=== PATIENT | male | born 1970 | race African-American/Black ===

== ENCOUNTER → 2017-12-04 | Outpatient (CLI) | payer OTHER ==
--- NOTE | 2017-12-04 17:17 | RAD ---
Exam: Lumbar spine AP lateral and oblique views History: 47-year-old male with pain Comparison: None Findings: 5 [id number] lumbar type vertebral bodies are seen. Vertebral body alignment is anatom ic. Lumbar disc spaces are maintained. No acute bony abnormality or significant degenerative change i s seen. Incidental note is made of very vena caval filter, apex of which extends up to the T12-L1 level. Bila teral hip prostheses are noted as well IMPRESSION: Negative views of the lumbar spine with no acute bony abnormality or significant degenera tive change seen. Reported By:
[2017-12-04 17:35] LABS: T4 (THYROXINE) 7.6 ug/dL (4.7-13.3); TSH (3RD GENERATION) 0.592 uIU/mL (0.358-3.74)
[2017-12-04 17:47] LABS: TOTAL PSA 1.74 ng/mL (0.13-4.0)
== END ==
LOC: LAB 16:43
PROVIDERS: ATTEND Psychiatry & Neurology Neurology
DX: M54.5 Low back pain (principal); R53.83 Other fatigue
CPT/HCPCS: 36415; 72110; 84153; 84436; 84443

== ENCOUNTER → 2017-12-29 | Outpatient (CLI) | payer OTHER ==
[2017-12-29 08:29] LABS: BASOPHILS # (AUTO) 0.1 X10^3/uL (0.0-0.1); BASOPHILS % (AUTO) 0.8 % (0.2-1.0); EOSINOPHILS # (AUTO) 0.1 x10^3/uL (0.0-0.2); EOSINOPHILS % (AUTO) 1.2 % (0.9-2.9); HEMATOCRIT 39.2 % (42.0-54.0); HEMOGLOBIN 12.5 g/dL (13.5-18.0); LYMPHOCYTES # (AUTO) 2.2 X10^3/uL (1.3-2.9); LYMPHOCYTES % (AUTO) 27.9 % (21.0-51.0); MEAN CORPUSCULAR HEMOGLOBIN 25.2 pg (27.0-34.0); MEAN PLATELET VOLUME 11.3 fL (7.4-11.0); MONOCYTES # (AUTO) 0.7 x10^3/uL (0.3-0.8); MONOCYTES % (AUTO) 8.7 % (0.0-13.0); NEUTROPHILS # (AUTO) 4.9 x10^3/uL (2.2-4.8); NEUTROPHILS % (AUTO) 61.4 % (42.0-75.0); PLATELET COUNT 161 X10^3/uL (150.0-450.0); RED BLOOD COUNT 4.97 X10^6/uL (4.7-6.0); RED CELL DISTRIBUTION WIDTH 14.8 % (11.6-16.5)
[2017-12-29 08:39] LABS: ALBUMIN 3.7 g/dL (3.4-5.0); BLOOD UREA NITROGEN 14 mg/dL (7-18); CALCIUM 8.7 mg/dL (8.5-10.1); CARBON DIOXIDE 26.8 mmol/L (21-32); CHLORIDE 110 mmol/L (98-107); CHOL/HDL RATIO 3.1 (0.0-5.0); CHOLESTEROL 156 mg/dL (0-200); CREATININE 1.61 mg/dL (0.70-1.30); HDL CHOLESTEROL 51 mg/dL (40-60); PHOSPHORUS 3.1 mg/dL (2.6-4.7); SODIUM 147 mmol/L (136-145); TRIGLYCERIDES 109 mg/dL (0-150); URIC ACID 5.4 mg/dL (3.5-7.2); eGFR BLACK RACES 59 (>60); eGFR NON BLACK RACES 49 (>60)
[2017-12-29 08:45] LABS: PLATELET MORPHOLOGY COMMENT NORMAL (NORMAL)
== END | disposition home or self-care (01) ==
LOC: LAB 08:05
PROVIDERS: ATTEND Internal Medicine
DX: N18.3 Chronic kidney disease, stage 3 (moderate) (principal); Z94.0 Kidney transplant status
CPT/HCPCS: 36415; 80061; 80069; 80197; 84550; 85025

== ENCOUNTER → 2018-02-03 | Outpatient (CLI) | payer OTHER, MEDICAID ==
[2018-02-03 10:14] LABS: ALANINE AMINOTRANSFERASE 19 Units/L (12-78); ALBUMIN 3.5 g/dL (3.4-5.0); ALKALINE PHOSPHATASE 68 Units/L (46-116); ASPARTATE AMINO TRANSFERASE 10 Units/L (15-37); BILIRUBIN,DIRECT 0.12 mg/dL (0-0.2); BLOOD UREA NITROGEN 21 mg/dL (7-18); CALCIUM 8.2 mg/dL (8.5-10.1); CARBON DIOXIDE 26.6 mmol/L (21-32); CHLORIDE 110 mmol/L (98-107); CHOLESTEROL 164 mg/dL (0-200); COR NA(FOR HYPERGLY) 146 mmol/L (136-145); CREATININE 1.62 mg/dL (0.70-1.30); FREE T4 (FREE THYROXINE) 0.81 ng/dL (0.76-1.46); HDL CHOLESTEROL 54 mg/dL (40-60); PHOSPHORUS 3.3 mg/dL (2.6-4.7); SODIUM 146 mmol/L (136-145); TOTAL PROTEIN 6.8 g/dL (6.4-8.2); TRIGLYCERIDES 84 mg/dL (0-150); TSH (3RD GENERATION) 1.518 uIU/mL (0.358-3.74); URIC ACID 6.9 mg/dL (3.5-7.2); eGFR BLACK RACES 59 (>60); eGFR NON BLACK RACES 49 (>60)
[2018-02-03 10:32] LABS: PLATELET MORPHOLOGY COMMENT NORMAL (NORMAL)
[2018-02-03 10:33] LABS: HYPOCHROMASIA SLIGHT
[2018-02-03 10:44] LABS: IRON 73 ug/dL (50-175); TOTAL IRON BINDING CAPACITY 278 ug/dL (250-450); TRANSFERRIN 213 mg/dL (202-364)
[2018-02-03 10:50] LABS: BASOPHILS % (AUTO) 0.5 % (0.2-1.0); EOSINOPHILS # (AUTO) 0.1 x10^3/uL (0.0-0.2); EOSINOPHILS % (AUTO) 1.4 % (0.9-2.9); HEMATOCRIT 36.5 % (42.0-54.0); HEMOGLOBIN 11.8 g/dL (13.5-18.0); LYMPHOCYTES # (AUTO) 2.1 X10^3/uL (1.3-2.9); LYMPHOCYTES % (AUTO) 28.4 % (21.0-51.0); MEAN CORPUSCULAR HEMOGLOBIN 25.5 pg (27.0-34.0); MEAN CORPUSCULAR HGB CONC 32.3 g/dL (33.0-35.0); MONOCYTES # (AUTO) 0.8 x10^3/uL (0.3-0.8); MONOCYTES % (AUTO) 10.3 % (0.0-13.0); NEUTROPHILS # (AUTO) 4.3 x10^3/uL (2.2-4.8); NEUTROPHILS % (AUTO) 59.4 % (42.0-75.0); PLATELET COUNT 145 X10^3/uL (150.0-450.0); RED BLOOD COUNT 4.61 X10^6/uL (4.7-6.0); RED CELL DISTRIBUTION WIDTH 14.3 % (11.6-16.5); RETICULOCYTE % 1.74 % (0.8-2.2); WHITE BLOOD COUNT 7.3 X10^3/uL (3.6-10.0)
--- NOTE | 2018-02-03 11:20 | MRI ---
MRI lumbar spine without contrast Indication: Lower back pain radiating to left lower extremity Technique: Multiplanar, multi sequence imaging of the lumbar spine without IV contrast administration . Findings: Lumbar spine alignment is normal. There is diffuse decreased T1 signal throughout the lumba r spine, clinical correlation is needed as this is often seen in setting of bone marrow reconversion likely in the setting of chronic anemia or smoking history however also can be seen in setting of chr onic renal osteodystrophy and/or metabolic processes given the patient's renal atrophy and right lowe r quadrant transplant kidney. There is disc desiccation at L3-4, L4-5 and L5-S1 with mild disc space loss at L5-S1.. Inferior endpl ate degenerative changes are noted at L3, L4 and L5. Conus is normal termination. No paraspinal or pr evertebral soft tissue swelling or fluid collection. At T12-L1 unremarkable At L1-2 unremarkable At L2-3 mild facet arthropathy without spinal canal or bony neural foraminal stenosis. At L3-4 minimal disc bulge and facet arthropathy causes no significant spinal canal stenosis with mil d right and no significant left-sided bony neural foraminal narrowing. At L4-5 broad-based disc bulge with a focal central disc protrusion and mild facet arthropathy causes mild spinal canal stenosis with mild right and left-sided bony neural foraminal stenosis. At L5-S1 broad-based disc bulge and mild facet arthropathy causes very mild spinal canal stenosis wit h no significant bony neural foraminal narrowing. There is suspected mild mass effect on bilateral la teral recess and transiting right and left S1 nerve roots. Impression: 1.Multilevel discogenic degenerative change and facet causing varying degrees of spinal canal and bon y neural foraminal stenosis as described above. 2. Moderate diffuse decreased T1 signal throughout the lumbar spine and sacrum likely represents bone marrow reconversion in the setting of chronic anemia and/or chronic renal disease/renal osteodystrop hy. 3. Moderate atrophy of bilateral [place] kidneys with a right lower quadrant transplant kidney contain ing multiple T2 hyperintense lesions consistent with cysts. Reported By:
--- NOTE | 2018-02-03 11:25 | MRI ---
MRI cervical spine without contrast. Indication: Lower back pain and neck pain Technique: Multiplanar, multi sequence imaging of the cervical spine without administration of IV con trast. Findings: Cervical spine alignment is maintained. There is no localizing marrow signal abnormality id entified within the cervical spine however there is decreased T1 signal throughout the cervical and u pper thoracic spine. No appreciable disc desiccation is identified. No prevertebral or paraspinal sof t tissue swelling or fluid collection. Is less posterior fossa demonstrates no mass effect. The crani ocervical junction is intact. There is no abnormal signal, atrophy or expansion of the cervical cord. At C2-3 unremarkable At C3-4 unremarkable At C4-5 unremarkable At C5-6 disc osteophyte complex, uncovertebral hypertrophy and facet arthropathy causes moderate spin al canal stenosis with moderate left and very mild right-sided bony neural foraminal stenosis. The At C6-7 unremarkable At C7-T1 unremarkable. Impression: Disc osteophyte complex, uncovertebral hypertrophy and facet arthropathy at C5-6 causes moderate spin al canal stenosis with moderate left and very mild right-sided bony neural foraminal stenosis. Diffuse decreased T1 signal throughout the cervical and upper thoracic spine vertebral bodies most co nsistent with bone marrow reconversion process, findings likely represent sequela of chronic anemia a nd/or chronic renal disease/osteodystrophy. No suspicious or aggressive appearing marrow signal abnor mality identified. Reported By:
== END | disposition home or self-care (01) ==
LOC: LAB 09:20
PROVIDERS: ATTEND Psychiatry & Neurology Neurology
DX: D50.8 Other iron deficiency anemias (principal); Z94.0 Kidney transplant status; I12.9 Hypertensive chronic kidney disease with stage 1 through stage 4 chronic kidney disease, or unspecified chronic kidney disease; N18.3 Chronic kidney disease, stage 3 (moderate); M54.2 Cervicalgia; R51 Headache; M47.892 Other spondylosis, cervical region; M51.26 Other intervertebral disc displacement, lumbar region; M51.27 Other intervertebral disc displacement, lumbosacral region; Z79.899 Other long term (current) drug therapy
CPT/HCPCS: 36415; 72141; 72148; 80048; 80061; 80069; 80076; 80158; 82607; 82728; 82746; 83540; 83550; 84439; 84443; 84466; 84550; 85025; 85045